=== PATIENT | female | born 1980 | race Asian ===

== ENCOUNTER 2016-12-12 09:00 | Inpatient (IN) | payer BC ==
[~2016-12-12] VITALS: Ht 160 cm; Wt 85.3 kg
[2016-12-12] MEDS ORDERED: LR 1,000 ML IV ONE (10:10)
[2016-12-12] MEDS ORDERED: CEFAZOLIN 2 GM IVPB PREMIX 50 ML IV ONE ×2 (10:15→14:00)
[2016-12-12 10:45] LABS: BASOPHILS % (AUTO) 0.3 % (0.0-2.0); EOSINOPHILS # (AUTO) 0.1 K/uL (0.0-0.4); HEMATOCRIT 35.3 % (36-48); HEMOGLOBIN 11.9 g/dL (12.0-16.0); LYMPHOCYTES # (AUTO) 1.4 K/uL (1.0-5.5); LYMPHOCYTES % (AUTO) 20.5 % (20.5-51.5); MEAN CORPUSCULAR HEMOGLOBIN 28 pg (27-31); MEAN CORPUSCULAR HGB CONC 34 % (32-36); MEAN CORPUSCULAR VOLUME 82 fL (79.0-98.0); MONOCYTES # (AUTO) 0.5 K/uL (0.0-1.0); MONOCYTES % (AUTO) 7.2 % (1.7-9.3); NEUTROPHILS # (AUTO) 4.8 K/uL (1.8-7.7); PLATELET COUNT (AUTO) 243 K/uL (130-430); RED BLOOD CELL COUNT(AUTO) 4.28 MIL/uL (4.2-6.2); RED CELL DISTRIBUTION WIDTH 14.8 % (9.0-15.0); WHITE BLOOD COUNT (AUTO) 6.8 K/uL (4.8-10.8)
[2016-12-12 10:47] LABS: BILIRUBIN,URINE NEGATIVE (NEGATIVE); BLOOD, URINE 1+ (NEGATIVE); CLARITY/URINE SL CLOUDY (CLEAR); COLOR,URINE YELLOW (YELLOW); GLUCOSE,URINE NEGATIVE (NEGATIVE); KETONES,URINE NEGATIVE (NEGATIVE); LEUKOCYTE ESTERASE ,URINE 1+ (NEGATIVE); NITRITE, URINE NEGATIVE (NEGATIVE); PROTEIN URINE NEGATIVE (NEGATIVE); UROBILINOGEN,URINE 0.2 (0.2-1.0)
[2016-12-12 10:57] LABS: BACTERIA,URINE FEW /HPF (None Seen); RBC,URINE 0-3 /HPF (0-3)
[2016-12-12 10:58] LABS: MUCUS,URINE None Seen /LPF (None Seen)
[2016-12-12] MEDS ORDERED: LR 1,000 ML IV.SOLN IV ONE (14:00)
[2016-12-12] MEDS ORDERED: MIDAZOLAM HCL 5 MG/5 ML VIAL ONE (14:00)
[2016-12-12] MEDS ORDERED: MORPHINE SULFATE 10MG/10ML PF AMP ONE (14:00)
[2016-12-12] MEDS ORDERED: NS IRRIG SOLN 1000 ML IR ONE (14:00)
[2016-12-12] MEDS ORDERED: ONDANSETRON HCL 4 MG/2 ML VIAL ONE (14:00)
[2016-12-12] MEDS ORDERED: fentaNYL CITRATE/PF 100 MCG/2 ML AMP ONE (14:00)
[2016-12-12] MEDS ORDERED: LR 1,000 ML IV SCH ×2 (14:07→17:15)
[2016-12-12] MEDS ORDERED: OXYTOCIN/NORMAL SALINE 1,000 ML IV ONE (14:08)
[2016-12-12] MEDS ORDERED: NALOXONE HCL 0.4 MG/ML AMP (NARCAN) IVP PRN (14:15)
[2016-12-12] MEDS ORDERED: KETOROLAC TROMETHAMINE 60 MG/2 ML VIAL IM PRN (14:15)
[2016-12-12] MEDS ORDERED: BISACODYL 10 MG/SUPPOSITORY RC PRN (14:15)
[2016-12-12] MEDS ORDERED: MEPERIDINE HCL/PF 25 MG/ML DISP.SYRIN IVP PRN (14:15)
[2016-12-12] MEDS ORDERED: ONDANSETRON HCL 4 MG/2 ML VIAL IVP PRN (14:15)
[2016-12-12] MEDS ORDERED: DIPHENHYDRAMINE INJ 50 MG/ML VIAL IM PRN (14:15)
[2016-12-12] MEDS ORDERED: MEPERIDINE HCL/PF 50 MG/ML AMP IVP PRN ×2 (14:15)
[2016-12-12] MEDS ORDERED: HYDROcodone/ACETAMIN 5-325 MG TAB (NORCO/ VICODIN) PO PRN (14:15)
[2016-12-12] MEDS ORDERED: METOCLOPRAMIDE HCL 10 MG/2 ML VIAL IVP PRN (14:15)
[2016-12-12] MEDS ORDERED: LANOLIN 7 GM OINT. TP PRN (14:15)
[2016-12-12] MEDS ORDERED: DOCUSATE SODIUM 100 MG CAPSULE PO PRN (14:15)
[2016-12-12] MEDS ORDERED: OXYCODONE/ACETAMINOPHEN 5-325 TABLET PO PRN (14:15)
[2016-12-12] MEDS ORDERED: MORPHINE SULFATE 10MG/10ML PF AMP SP SCH (14:15)
[2016-12-12] MEDS ORDERED: MEASLES,MUMPS&RUBELLA VACC/PF 12500 UNIT/0.5 ML VIAL SUBQ PRN (14:15)
[2016-12-12] MEDS ORDERED: ANUSOL 1 EA SUPP.RECT (PREPARATION H) RC PRN (14:15)
[2016-12-12] MEDS ORDERED: SENNOSIDES/DOCUSATE SODIUM 1 TAB TABLET(SENOKOT-S) PO PRN (14:15)
[2016-12-12] MEDS ORDERED: RHO(D) IMMUNE GLOBULIN/MALTOSE 1500 UNITS/1.3 ML (WINHRO) IM PRN (14:15)
[2016-12-12 14:20] VITALS: BP_SYST 113
[2016-12-12] MEDS: KETOROLAC TROMETHAMINE 30 MG VIAL IVP SCH ×2 (17:43→23:29)
[2016-12-12] MEDS: CEFAZOLIN 1 GM IVPB PREMIX 50 ML IV SCH ×2 (18:17→23:28)
[2016-12-12] MEDS ORDERED: TEMAZEPAM 15 MG CAPSULE PO PRN (21:00)
[2016-12-13] MEDS: CEFAZOLIN 1 GM IVPB PREMIX 50 ML IV SCH (05:54)
[2016-12-13] MEDS: KETOROLAC TROMETHAMINE 30 MG VIAL IVP SCH ×2 (06:00→12:30)
[2016-12-13 07:21] LABS: BASOPHILS % (AUTO) 0.3 % (0.0-2.0); EOSINOPHILS # (AUTO) 0.2 K/uL (0.0-0.4); EOSINOPHILS % (AUTO) 1.9 % (0.0-4.0); HEMATOCRIT 30.6 % (36-48); HEMOGLOBIN 9.9 g/dL (12.0-16.0); LYMPHOCYTES # (AUTO) 1.4 K/uL (1.0-5.5); LYMPHOCYTES % (AUTO) 16.9 % (20.5-51.5); MEAN CORPUSCULAR HEMOGLOBIN 27 pg (27-31); MEAN CORPUSCULAR HGB CONC 32 % (32-36); MEAN CORPUSCULAR VOLUME 83 fL (79.0-98.0); MONOCYTES # (AUTO) 0.6 K/uL (0.0-1.0); MONOCYTES % (AUTO) 7.4 % (1.7-9.3); NEUTROPHILS # (AUTO) 6.3 K/uL (1.8-7.7); NEUTROPHILS % (AUTO) 73.5 % (40.0-70.0); PLATELET COUNT (AUTO) 196 K/uL (130-430); RED BLOOD CELL COUNT(AUTO) 3.67 MIL/uL (4.2-6.2); RED CELL DISTRIBUTION WIDTH 15.3 % (9.0-15.0); WHITE BLOOD COUNT (AUTO) 8.5 K/uL (4.8-10.8)
[2016-12-13] MEDS: SIMETHICONE 80 MG TAB.CHEW PO PRN ×2 (12:30→18:08)
[2016-12-13] MEDS: OXYCODONE/ACETAMINOPHEN 5-325 TABLET PO PRN ×3 (12:30→23:35)
[2016-12-13] MEDS: IBUPROFEN 600 MG TABLET PO SCH ×2 (18:08→23:35)
[2016-12-14] MEDS: IBUPROFEN 600 MG TABLET PO SCH (06:09)
[2016-12-14] MEDS: OXYCODONE/ACETAMINOPHEN 5-325 TABLET PO PRN (06:10)
== END 2016-12-14 11:55 | disposition home or self-care (01) | DRG 766 ==
LOC: SPU 09:38
PROVIDERS: ADMIT Specialist; ATTEND Specialist
PROC: 10D00Z1 Extraction of Products of Conception, Low, Open Approach (ICD-10-PCS; principal; 2016-12-13)
DX: O34.211 Maternal care for low transverse scar from previous cesarean delivery (principal); O21.0 Mild hyperemesis gravidarum; Z37.0 Single live birth; Z3A.39 39 weeks gestation of pregnancy; Z23 Encounter for immunization
CPT/HCPCS: 36415; 81000-TC; 85025; 86592; 86886; 86900; 86901; 94760; J0690; J1885; J2250; J2274; J2405; J2590; J3010; J7120